=== PATIENT | male | born 1960 | race Caucasian/White ===

== ENCOUNTER 2019-02-28 17:41 | Inpatient (IN) | payer OTHER ==
[2019-02-28] MEDS ORDERED: ONDANSETRON (ODT) 4 MG TAB ODT (18:04)
[2019-02-28] MEDS ORDERED: KETOROLAC 30 MG INJ IM (18:04)
[2019-02-28] MEDS: SOD CHLORIDE 0.9% 1,000 ML IV ×2 (18:23→21:21)
[2019-02-28] MEDS: HYDROmorphONE 1 MG/ML SYG IV (18:24)
[2019-02-28] MEDS: ONDANSETRON 4 MG INJ IV ×3 (18:24→23:19)
[2019-02-28] MEDS: KETOROLAC 30 MG INJ IV (18:24)
[2019-02-28 18:26] LABS: ADD MAN DIFF? NO
[2019-02-28 18:28] LABS: WHITE BLOOD COUNT 11.9 10^3/ul (4.8-10.8)
[2019-02-28 18:28] LABS: BASOPHIL # 0.1 10^3/ul (0.0-0.1); BASOPHILS % 0.5 % (0.0-2.0); EOSINOPHILS # 0.5 10^3/ul (0.0-0.5); EOSINOPHILS % 4.1 % (0.0-7.0); HEMATOCRIT 43.6 % (42.0-52.0); HEMOGLOBIN 14.7 g/dl (14.0-18.0); LYMPHOCYTES # 1.3 10^3/ul (0.8-2.9); LYMPHOCYTES % 11.2 % (15.0-51.0); MEAN CORPUSCULAR HEMOGLOBIN 31.7 pg (29.0-33.0); MEAN CORPUSCULAR HGB CONC 33.7 g/dl (32.0-37.0); MEAN PLATELET VOLUME 9.8 fl (7.4-10.4); MONOCYTE # 0.9 10^3/ul (0.3-0.9); MONOCYTES % 7.5 % (0.0-11.0); NEUTROPHILS % 76.3 % (39.0-77.0); PLATELET COUNT 164 10^3/UL (140-415); POSITIVE DIFF @See below; RED BLOOD COUNT 4.64 10^6/ul (4.70-6.10); RED CELL DISTRIBUTION WIDTH 12.2 % (11.5-14.5)
[2019-02-28 18:46] LABS: ALANINE AMINOTRANSFERASE 28 IU/L (13-69); ALBUMIN 4.1 g/dl (3.3-4.9); ALBUMIN/GLOBULIN RATIO 1.46; ALKALINE PHOSPHATASE 99 IU/L (42-121); ANION GAP 6 (5-13); ASPARTATE AMINO TRANSFERASE 32 IU/L (15-46); BILIRUBIN,INDIRECT 0.7 mg/dl (0-1.1); BILIRUBIN,TOTAL 0.7 mg/dl (0.2-1.3); BLOOD UREA NITROGEN 15 mg/dl (7-20); CALCIUM 9.3 mg/dl (8.4-10.2); CARBON DIOXIDE 26 mmol/L (21-31); CHLORIDE 106 mmol/L (97-110); CREATININE 0.99 mg/dl (0.61-1.24); Estimated GFR > 60 mL/min (>60); GLUCOSE 130 mg/dl (70-220); LIPASE 1420 U/L (23-300); POTASSIUM 4.3 mmol/L (3.5-5.1); SODIUM 138 mmol/L (135-144); TOTAL PROTEIN 6.9 g/dl (6.1-8.1)
[2019-02-28] MEDS: HYDROmorphONE 2 MG/ML SYG IV ×2 (19:46→23:14)
[2019-02-28] MEDS ORDERED: ACETAMINOPHEN 325 MG TAB PO (20:00)
[2019-02-28] MEDS ORDERED: DOCUSATE SODIUM 100 MG CAP PO (21:30)
[2019-02-28] MEDS ORDERED: NACL 0.9% 3 ML SYG IV (21:30)
[2019-02-28] MEDS ORDERED: ONDANSETRON 4 MG INJ IV (21:30)
[2019-02-28] MEDS: TAMSULOSIN (SR) 0.4 MG CAP PO ×2 (21:30→23:09)
[2019-03-01] MEDS ORDERED: ONDANSETRON 4 MG INJ IV (02:00)
[2019-03-01] MEDS: TAMSULOSIN (SR) 0.4 MG CAP PO ×2 (05:06→20:54)
[2019-03-01 05:33] LABS: ADD MAN DIFF? NO
[2019-03-01 05:43] LABS: WHITE BLOOD COUNT 7.9 10^3/ul (4.8-10.8)
[2019-03-01 05:43] LABS: BASOPHILS % 0.4 % (0.0-2.0); EOSINOPHILS # 0.1 10^3/ul (0.0-0.5); EOSINOPHILS % 1.3 % (0.0-7.0); HEMATOCRIT 39.8 % (42.0-52.0); HEMOGLOBIN 13.1 g/dl (14.0-18.0); MEAN CORPUSCULAR HGB CONC 32.9 g/dl (32.0-37.0); MEAN CORPUSCULAR VOLUME 97.3 fl (82.0-101.0); MEAN PLATELET VOLUME 10.1 fl (7.4-10.4); MONOCYTE # 0.8 10^3/ul (0.3-0.9); MONOCYTES % 10.3 % (0.0-11.0); NEUTROPHIL # 5.9 10^3/ul (1.6-7.5); NEUTROPHILS % 74.7 % (39.0-77.0); PLATELET COUNT 145 10^3/UL (140-415); RED BLOOD COUNT 4.09 10^6/ul (4.70-6.10); RED CELL DISTRIBUTION WIDTH 12.3 % (11.5-14.5)
[2019-03-01 06:10] LABS: ALANINE AMINOTRANSFERASE 26 IU/L (13-69); ALBUMIN 3.4 g/dl (3.3-4.9); ALBUMIN/GLOBULIN RATIO 1.36; ALKALINE PHOSPHATASE 75 IU/L (42-121); AMYLASE 150 U/L (11-123); ANION GAP 3 (5-13); ASPARTATE AMINO TRANSFERASE 37 IU/L (15-46); BILIRUBIN,INDIRECT 0.6 mg/dl (0-1.1); BILIRUBIN,TOTAL 0.6 mg/dl (0.2-1.3); BLOOD UREA NITROGEN 18 mg/dl (7-20); CALCIUM 8.5 mg/dl (8.4-10.2); CARBON DIOXIDE 28 mmol/L (21-31); CHLORIDE 107 mmol/L (97-110); CREATININE 1.28 mg/dl (0.61-1.24); Estimated GFR 58 mL/min (>60); GLUCOSE 107 mg/dl (70-220); LIPASE 156 U/L (23-300); POTASSIUM 4.8 mmol/L (3.5-5.1); SODIUM 138 mmol/L (135-144); TOTAL PROTEIN 5.9 g/dl (6.1-8.1)
[2019-03-01] MEDS: SOD CHLORIDE 0.9% 1,000 ML IV ×4 (06:31→20:55)
[2019-03-01] MEDS: SOD CHLORIDE 0.9% 500 ML IV (08:30)
[2019-03-01 09:30] LABS: ADD UMIC YES; UR ASCORBIC ACID NEGATIVE (NEGATIVE); UR BILIRUBIN (Dip) NEGATIVE (NEGATIVE); UR BLOOD (Dip) 2+ mg/dL (NEGATIVE); UR CLARITY CLEAR (CLEAR); UR COLOR YELLOW (YELLOW); UR GLUCOSE (Dip) NEGATIVE (NEGATIVE); UR KETONES (Dip) TRACE mg/dL (NEGATIVE); UR LEUKOCYTE ESTERASE (Dip) NEGATIVE Leu/ul (NEGATIVE); UR MUCUS FEW /HPF (NONE SEEN); UR NITRITE (Dip) NEGATIVE (NEGATIVE); UR RBC 7 /HPF (0-5); UR SPECIFIC GRAVITY (Dip) 1.025 (1.003-1.030); UR TOTAL PROTEIN (Dip) 1+ mg/dl (NEGATIVE); UR UROBILINOGEN (Dip) NEGATIVE (NEGATIVE); UR WBC 1 /HPF (0-5)
[2019-03-01] MEDS: METOCLOPRAMIDE 10 MG INJ IV (09:46)
[2019-03-01] MEDS: HYDROmorphONE 0.5 MG/0.5 ML SYG IV (14:01)
[2019-03-01] MEDS: ACETAMINOPHEN 325 MG TAB PO (18:08)
[2019-03-02] MEDS: SOD CHLORIDE 0.9% 1,000 ML IV ×2 (04:35→11:35)
[2019-03-02] MEDS: LEVOTHYROXINE 25 MCG TAB PO (06:51)
[2019-03-02] MEDS: TAMSULOSIN (SR) 0.4 MG CAP PO (08:36)
[2019-03-02] MEDS: BISACODYL (EC) 5 MG TAB PO (08:41)
[2019-03-02] MEDS: HYDROmorphONE 0.5 MG/0.5 ML SYG IV (12:48)
== END 2019-03-02 15:05 | disposition home or self-care (01) | DRG 694 ==
LOC: E/R 17:41 → MS1 20:01
DX: N20.0 Calculus of kidney (principal); E03.9 Hypothyroidism, unspecified; N44.2 Benign cyst of testis; R74.8 Abnormal levels of other serum enzymes; Z87.442 Personal history of urinary calculi
CPT/HCPCS: 36415; 74018; 74176; 76705; 76870; 80053; 81001; 82150; 83690; 85025; 87086; 96374; 96375; 96376; 99285-25